=== PATIENT | female | born 2000 | race Caucasian/White ===

== ENCOUNTER 2022-09-18 00:06 | Day surgery (SDC) | payer BC, SELFPAY ==
[2022-09-14 15:24] VITALS: BMI 27.3
--- NOTE | 2022-09-14 15:41 | PC.NURSE ---
Report to the Outpatient Waiting Room, entrance under the green pavilion located off [facility], at 1100 on 09-18-22. Planned Procedure Time: 1300. Time changes happen often and if your time is changed the preop area will call you the afternoon before. - You and your visitor will be asked to self-screen and do not enter if you have any COVID symptoms. - We encourage only one visitor and NO visitors under age 16 are allowed at this time. Your visitor will receive communication by the phone number that is given day of service. - The patient visitor is requested to social distance or may leave the building when not with patient due to restrictions. Patients may have clear liquids (water, carbonated beverages, clear teas, apple juice) until 3 hours prior to surgery with a maximum of 20 ounces. 1000 - No food from midnight until time of surgery - Infants may have breast milk until 4 hours before surgery, formula 6 hours prior to surgery. - Children will be allowed to drink immediately following surgery. If applicable, please bring a bottle or sippy cup to assist with drinking. Juice, water, soda, and popsicles are readily available. For infants on formula, please bring formula the day of surgery. Pacifiers are allowed. Take the following medications with a SIP of water the morning of surgery: None Medications to discontinue per physician: N/A Please no make-up, nail singaporean, hairspray, perfume, deodorant, or body powder the day of surgery. No jewelry (including any body piercings) or valuables the day of surgery, leave them at home. Please take a shower or bath the night before, or the morning of, surgery with an antibacterial soap. Wear comfortable, loose fitting clothing. Children are encouraged to wear pajamas. - Jewelry must be removed prior to entering the operating room. Rings and piercings that are not removed may be cut off. - The hospital will not accept responsibility for valuables. - Please leave all valuables, including medications, at home the day of surgery. If you are going home after surgery, a licensed bobtail driver must drive you home. - NO public transportation without another adult. - We recommend that an adult stay with you for 24 hours following discharge. - We also recommend that you do not drive, make important decision, drink alcoholic beverages, or take any drugs that were not prescribed by your health care provider for at least 24 hours after your discharge time. For Pediatric surgeries, we recommend two adults accompany the child home. Follow any additional instructions given to you from your surgeon. If you or anyone in your household have experienced Covid symptoms in the past week, please notify your surgeon or the nurse liaison at the phone number below for possible testing. Telephone instructions given to Mayte Nevarez and asked if any additional questions and then verbalized understanding. Patient advised to call surgeon office or pre surgery nurse liaison [phone] if any additional questions.
[2022-09-18 11:14] VITALS: BP 126/71; PULSE 86; RESP 18; TEMP 37; O2SAT 99
[2022-09-18] MEDS: LACTATED RINGERS 1,000 ML 30 ML IV CONT (11:45)
--- NOTE | 2022-09-18 12:41 | WPDANESEPPF ---
Anes - Initial Pre Proc Eval Procedure: Operation Date: 09/18/22 13:00 Proposed Procedures p Excision Complicated Pilonidal Cyst - Segundo Hamm DO Date/Time: 09/18/22 12:41 Surgeon: Segundo Hamm DO Pre Op Diagnosis: pilonidal cyst Patient Data Age: 22 Gender: F Height: 1.65 m Weight: 75.5 kg Last Vital Signs Temp 37.0 C 09/18/22 11:14 Pulse 86 09/18/22 11:14 Resp 18 09/18/22 11:14 BP 126/71 09/18/22 11:14 Pulse Ox 99 09/18/22 11:14 O2 Del Method Room Air 09/18/22 11:14 Allergies Allergy/AdvReac Type Severity Reaction Status Date / Time No Known Allergies Allergy Verified 09/14/22 15:21 Home Medications Medication Instructions Recorded Confirmed Type etonogestrel 68 mg subdermal 1 implant subdermal ONCE 07/24/22 09/14/22 History implant (Nexplanon) Patient hx anesthesia problems: none Family hx anesthesia problems: none Results Review: All pre-operative results and documents have been reviewed as part of the pre-operative evaluation. [facility] Surgical History Surgical History S/P rhinoplasty Family History Family History Father Hypertension High cholesterol Gout Unknown Hypertension Heart disease Cancer Social History Social History Smoking status: Never smoker Second hand tobacco smoke exposure: Yes (parents smoke) Alcohol intake: current Alcohol use details: occasionally Substance use: never Substance use type: does not use Living arrangements: with family Gender identity (if verbalized by the patient): Female Spiritual care concerns: No Anes - Eval Final PreProcedure Day of Procedure 09/18/22 12:41 Patient weight: overweight Heart: regular rate and rhythm Lungs: clear to auscultation Airway: Mallampati scale class II Neurological: alert and oriented Last oral intake: >/= 8 hours ASA classification: II Emergent: no Anesthetic plan: proceed Anesthesia type and monitoring: general GIVS and standard monitoring Results Review: All pre-operative results and documents have been reviewed as part of the pre-operative evaluation. Informed Consent: The patient's anesthetic plan and its attendant risks and benefits were discussed with the patient/family/POA. Questions were solicited and answers provided to the satisfaction of the patient/family/POA.
--- NOTE | 2022-09-18 13:05 | WPDHPUPDATE1 ---
History and Physical Update Update Date/Time: 09/18/22 13:05 History and Physical has been reviewed, including an updated exam of the patient. There are NO changes in the patient's condition. Risks, benefits, and alternatives have been discussed and questions answered. Patient agrees to proceed with procedure.
--- NOTE | 2022-09-18 13:05 | PM.IMHP ---
H&P: HPI History of Present Illness Date/Time: 09/18/22 13:05 Chief Complaint: Pilonidal cyst Narrative: This is a 22-year-old woman presented with recurrent pilonidal cyst infections. She now presents for excision of complicated pilonidal cyst. She reports no changes since last seen in the office. Review of Systems Review of Systems: All systems reviewed & are unremarkable except as noted in HPI and below Constitutional: Constitutional: Denies chills, Denies fever(s), Denies headache(s) and Denies weight loss Eyes: Eyes: Denies change in vision ENT: Denies dizziness, Denies headache(s), Denies neck mass and Denies throat swelling Cardiovascular: Cardiovascular: Denies chest pain, Denies lightheadedness and Denies dyspnea Respiratory: Respiratory: Denies cough, Denies dyspnea and Denies wheezing Gastrointestinal: Gastrointestinal: Denies abdominal pain, Denies change in bowel habits, Denies nausea and Denies vomiting Genitourinary: Genitourinary: Denies hematuria and Denies dysuria Musculoskeletal: Musculoskeletal: Reports as per HPI Integumentary/Breasts: Skin/Breast: Reports as per HPI Neurologic: Denies dizziness and Denies headache(s) Allergic/Immunologic: Allergic/Immunologic: Denies throat swelling and Denies wheezing PMFSH Surgical History Surgical History S/P rhinoplasty Family History Family History Father Hypertension High cholesterol Gout Unknown Hypertension Heart disease Cancer Social History Social History Smoking status: Never smoker Second hand tobacco smoke exposure: Yes (parents smoke) Alcohol intake: current Alcohol use details: occasionally Substance use: never Substance use type: does not use Living arrangements: with family Gender identity (if verbalized by the patient): Female Spiritual care concerns: No Meds Home Medications and Allergies Home Medications Medication Instructions Recorded Confirmed Type etonogestrel 68 mg subdermal 1 implant subdermal ONCE 07/24/22 09/14/22 History implant (Nexplanon) Allergies Allergy/AdvReac Type Severity Reaction Status Date / Time No Known Allergies Allergy Verified 09/14/22 15:21 Vital Signs Vital Signs - 24 hr 09/18/22 11:14 Temperature 37.0 C Pulse Rate 86 Respiratory Rate 18 Blood Pressure 126/71 Pulse Oximetry 99 Oxygen Delivery Room Air Exam Const: General: no acute distress and alert Orientation/consciousness: patient oriented x3 HENMT: Head: normocephalic and atraumatic Ears: hearing grossly normal bilaterally Face/Nose/Sinus: Normal nares present Mouth: Yes Normal oral and palatal mucosa present Eyes: Periorbital: periorbital findings normal Sclera: sclerae normal EOM: EOMs intact bilaterally Neck: Neck: normal visual inspection, no lymphadenopathy and trachea midline Chest: Chest palpation & inspection: normal inspection of the chest Resp: Effort & Inspection: normal respiratory effort Auscultation: clear to auscultation bilaterally Cardio: Jugular venous distension: no JVD Rate: regular rate Rhythm: regular rhythm Heart sounds: S1 normal heart sound present and S2 normal heart sound present Peripheral pulses: Peripheral pulses 2+ throughout GI: Inspection: normal to inspection GI Palp: Yes Soft to palpation, No Tenderness to palpation present (GI), No Guarding due to palpation present (GI) and No Rebound tenderness present Percussion: Yes normal to percussion Auscultation: normal bowel sounds : General: Yes no CVA tenderness Back/Spine/Pelvis: Back: no CVA tenderness Neuro: General: patient oriented x3, no focal motor deficits and CN's II-XI intact bilaterally Cognition (Neuro): normal cognition Speech: normal speech Motor exam (neuro): 5/5 motor strength present through
[2022-09-18] MEDS: ceFAZolin 2 GM/D5W 50 ML 2 GM/50 ML BAG IVPB (13:25)
[2022-09-18] MEDS: BUPIVACAINE/EPINEPHRINE 0.25% 50 ML VIAL 30 ML INFILTRATE (13:46)
[2022-09-18 14:08] VITALS: BP 115/58; PULSE 102; RESP 14; O2SAT 96
--- NOTE | 2022-09-18 14:09 | W.PM.PROC2 ---
Procedure Note - Detailed Date of Procedure 09/18/22 Pre-op Diagnosis pilonidal cyst Post-op Diagnosis Same Procedure Performed Excision of complicated pilonidal cyst Surgeon Segundo Hamm, DO Anesthesia MAC and Local (2% lidocaine with epinephrine) Indications This is a 22 woman who presented with prior episodes of swelling and drainage along her intergluteal cleft. She was found to have 2 small sinus tracts and a small area where she had previously had an abscess spontaneously drained. Discussions were made with the patient about treatment options and decision was made to proceed with excision pilonidal cyst. Findings Excision of complicated pilonidal cyst was performed. Patient had 3 sinus tracts along the midline intergluteal cleft. There did not appear to be any distant tracking beyond this area. An elliptical incision was made to encompass the entire involved area. The pilonidal cyst was completely excised and sent to the lab for pathology. Description of Procedure Procedure as well as risks, benefits, and alternatives were discussed with the patient. Written consent was obtained and placed in chart prior to procedure. Patient was brought back to surgical suite. She was placed supine on operating table. Time-out was done to confirm patient and procedure. IV sedation was administered by the Anesthesia Department. She was then repositioned to prone sadi-knife position on the operating table. Her sacral region was prepped and draped in sterile fashion using Betadine prep. 2% lidocaine with epinephrine was infiltrated locally around the pilonidal cyst. Lacrimal probes were used to identify the sinus tracts and probed for the directions that they were tracking. An elliptical incision was then made using a 15 blade scalpel to encompass the entire area. Electrocautery was used for hemostasis and for dissection down deep to the cyst cavity. Careful dissection was made around the entire cyst to excise it completely intact. The cyst was completely removed and sent to the lab for pathology. The wound bed was then inspected. Hemostasis was achieved with electrocautery. The wound bed was then irrigated with sterile saline. No other abnormalities were noted. The deep tissue was then reapproximated using 0 Vicryl simple interrupted sutures. The skin edges were then reapproximated using 2-0 Prolene vertical mattress interrupted sutures placed approximately 1 cm apart. Fluff gauze, ABD pad, and Medipore tape were then applied. The patient was then awakened from anesthesia and transferred to recovery. Estimated Blood Loss 5 Packing No Pathology Yes ( pilonidal cyst) Complications No immediate complications Condition Stable Disposition Same day [facility] Billing Surgery - Charge Forward: Surgery Billing
[2022-09-18 14:35] VITALS: BP 109/67; PULSE 85; RESP 16
[2022-09-18 15:05] VITALS: BP 114/67; PULSE 82; RESP 16
== END 2022-09-18 15:08 | disposition home or self-care (01) ==
PROVIDERS: PCP Family Medicine Adolescent Medicine; Visit Provider Surgery
PROC: (CPT 11772; principal; 2022-09-18 13:00)
DX: L05.91 Pilonidal cyst without abscess (principal)
CPT/HCPCS: 11772; 88305; A9270; J0690; J1100; J2250; J2405; J2704; J3010; J7120